=== PATIENT | male | born 1990 | race Caucasian/White ===

== ENCOUNTER 2019-09-06 20:01 | Emergency (ER) | payer BC ==
[~2019-09-06] VITALS: Ht 170.2 cm; Wt 77.3 kg
[2019-09-06 20:14] VITALS: BP 135/95; TEMP 97.2
[2019-09-06 21:41] VITALS: PULSE 95
== END 2019-09-06 21:43 | disposition home or self-care (01) ==
LOC: COL.ER 20:01
DX: S93.401A Sprain of unspecified ligament of right ankle, initial encounter (principal); X50.1XXA Overexertion from prolonged static or awkward postures, initial encounter